=== PATIENT | male | born 1985 | race Caucasian/White ===

== ENCOUNTER 2020-06-15 12:28 | Outpatient (CLI) | payer OTHER, SELFPAY ==
--- NOTE | 2020-06-15 12:51 | ECHO_ITS ---
Patient Info Name: Fredrick Munguia Age: 35 years : 1985 Gender: Male Ht: 68 in Wt: 175 lbs BSA: 1.97 m2 HR: 56 bpm BP: 125 / 71 mmHg Heart Rhythm: Sinus Rhythm Exam Date: 06/15/2020 1:04 PM Exam Location: [facility] Patient Status: Outpatient Admit Date: 06/15/2020 Staff Ordering Physician: Mika Medina DO Sealer Sander: Tg Myrick RDCS Attending Provider: Mika Medina DO Exam Type: CA echo doppler color flow Study Info Complete two-dimensional, color flow and Doppler transthoracic echocardiogram is performed. Summary 1. Complete two-dimensional, color flow and Doppler transthoracic echocardiogram is performed. 2. Left ventricular chamber dimension is normal. 3. Ventricular septum is sigmoid shaped. Resting LVOT peak gradient 8 mmHg and mean gradient 4 mmHg are mild LVOT obstruction suggesting hypertrophic cardiomyopathy. 4. Left ventricular systolic function is normal, estimated at 60-65%. 5. There is moderately increased left ventricular wall thickness. 6. The left ventricular diastolic function is abnormal. 7. E/e' 14 is mildly elevated. 8. Global longitudinal strain is normal at -17.6%. 9. Moderate systolic anterior motion of mitral valve. 10. There is mild mitral valve regurgitation. Left Ventricle Ventricular septum is sigmoid shaped. Resting LVOT peak gradient 8 mmHg and mean gradient 4 mmHg are mild LVOT obstruction suggesting hypertrophic cardiomyopathy. E/e' 14 is mildly elevated. Global longitudinal strain is normal at -17.6%. Left ventricular chamber dimension is normal. Left ventricular systolic function is normal, estimated at 60-65%. There is moderately increased left ventricular wall thickness. The left ventricular diastolic function is abnormal. Right Ventricle Right ventricular chamber dimension is normal. Right ventricular systolic function is normal. Left Atria Left atrial chamber dimension is normal. Right Atria Right atrial chamber dimension is normal. Aortic Valve The aortic valve is trileaflet. There is no aortic valve stenosis. There is no aortic valve regurgitation. Pulmonic Valve There is no pulmonic regurgitation. Mitral Valve Moderate systolic anterior motion of mitral valve. There is no mitral valve stenosis. There is mild mitral valve regurgitation. Tricuspid Valve There is no tricuspid valve regurgitation. Pericardium/Pleural There is no pericardial effusion. Inferior Vena Cava Normal inferior vena cava with >50% collapse upon inspiration consistent with normal right atrial pressure, 5 mmHg. Aorta The aortic root size at the sinus of Valsalva is normal. Left Ventricular Outflow Tract Name Value Normal LVOT 2D LVOT Diameter 2.0 cm LVOT Doppler LVOT Peak Gradient 8 mmHg LVOT Mean Gradient 4 mmHg LVOT VTI 34 cm LVOT VTI/AV VTI Ratio 1.0 LVOT Stroke Volume 104 ml LVOT CO 5.2 l/min LVOT CI 2.7 l/min/m2
== END 2020-06-15 12:29 | disposition home or self-care (01) ==
PROVIDERS: PCP Internal Medicine Cardiovascular Disease; Visit Provider Internal Medicine Cardiovascular Disease
DX: I42.1 Obstructive hypertrophic cardiomyopathy (principal); R93.1 Abnormal findings on diagnostic imaging of heart and coronary circulation
CPT/HCPCS: 93306

== ENCOUNTER 2021-06-30 14:34 | Outpatient (CLI) | payer OTHER, SELFPAY ==
--- NOTE | 2021-06-30 14:42 | ECHO_ITS ---
Patient Info Name: Fredrick Munguia Age: 36 years : 1985 Gender: Male Ht: 68 in Wt: 175 lbs BSA: 1.97 m2 HR: 73 bpm BP: 125 / 76 mmHg Heart Rhythm: Sinus Rhythm Technical Quality: Good Exam Date: 06/30/2021 2:58 PM Exam Location: [facility] Patient Status: Outpatient Admit Date: 06/30/2021 Staff Ordering Physician: Mika Medina DO Director Medicaid: Suzy García RDCS Attending Provider: Mika Medina DO Referring Physician: Adam KUO; Exam Type: CA echo doppler color flow Study Info Indications - HOCM Complete two-dimensional, color flow and Doppler transthoracic echocardiogram is performed. Summary 1. Complete two-dimensional, color flow and Doppler transthoracic echocardiogram is performed. 2. Left ventricular chamber dimension is normal. 3. Left ventricular systolic function is hyperdynamic, estimated at >70%. 4. There is moderate concentric increased left ventricular wall thickness. 5. The left ventricular diastolic function is grade I diastolic dysfunction. 6. Mild resting LVOT obstruction with peak gradient at 11 mmHg and mean gradient 7 mmHg. 7. E/e' 12 is mildly elevated. 8. Global longitudinal strain is normal at -20.4%. 9. Left atrial chamber dimension is severely enlarged. 10. Moderate systolic anterior motion of mitral valve. 11. There is mild mitral valve regurgitation. 12. No pulmonary hypertension, estimated pulmonary arterial systolic pressure is 30 mmHg. Left Ventricle E/e' 12 is mildly elevated. Global longitudinal strain is normal at -20.4%. Mild resting LVOT obstruction with peak gradient at 11 mmHg and mean gradient 7 mmHg. Left ventricular chamber dimension is normal. Left ventricular systolic function is hyperdynamic, estimated at >70%. There is moderate concentric increased left ventricular wall thickness. The left ventricular diastolic function is grade I diastolic dysfunction. Right Ventricle Right ventricular systolic function is normal with normal TAPSE 2.2 cm. Right ventricular chamber dimension is normal. Left Atria Left atrial chamber dimension is severely enlarged. Right Atria Right atrial chamber dimension is normal. Aortic Valve The aortic valve is trileaflet. There is no aortic valve stenosis. There is no aortic valve regurgitation. Pulmonic Valve There is no pulmonic regurgitation. Mitral Valve Moderate systolic anterior motion of mitral valve. There is no mitral valve stenosis. There is mild mitral valve regurgitation. Tricuspid Valve There is no tricuspid valve regurgitation. No pulmonary hypertension, estimated pulmonary arterial systolic pressure is 30 mmHg. Pericardium/Pleural There is no pericardial effusion. Inferior Vena Cava Normal inferior vena cava with >50% collapse upon inspiration consistent with normal right atrial pressure, 5 mmHg. Aorta The aortic root size at the sinus of Valsalva is normal. Left Ventricular Outflow Tract Name Value Normal LVOT 2D LVOT Diameter 2.0 cm LVOT Doppler LVOT Peak Gradient 11 mmHg LVOT Mean Gradient 8 mmHg
== END 2021-06-30 14:35 | disposition home or self-care (01) ==
LOC: ANHCARD 14:37
PROVIDERS: PCP Internal Medicine Cardiovascular Disease; Visit Provider Internal Medicine Cardiovascular Disease
DX: I42.1 Obstructive hypertrophic cardiomyopathy (principal); I51.7 Cardiomegaly
CPT/HCPCS: C8929